=== PATIENT | male | born 1995 | race Caucasian/White ===

== ENCOUNTER 2018-10-20 15:22 | Emergency (ER) | payer BC ==
[~2018-10-20] VITALS: Ht 180.3 cm; Wt 117.9 kg
[2018-10-20 15:24] VITALS: Ht 180.3 cm; Wt 117.9 kg
[2018-10-20 18:11] VITALS: BP 124/78
== END 2018-10-20 18:11 | disposition home or self-care (01) ==
LOC: ED 15:22
DX: S46.911A Strain of unspecified muscle, fascia and tendon at shoulder and upper arm level, right arm, initial encounter (principal); X50.0XXA Overexertion from strenuous movement or load, initial encounter; Y93.89 Activity, other specified; Y92.89 Other specified places as the place of occurrence of the external cause; Y99.8 Other external cause status